=== PATIENT | male | born 1940 | race Caucasian/White ===

== ENCOUNTER 2017-01-06 14:08 | Observation (INO) | payer MEDICARE, OTHER ==
[2017-01-06] MEDS ORDERED: NORMAL SALINE 1,000 ML IV ONE ×2 (14:33→16:58)
[2017-01-06 14:51] LABS: Hematocrit 36.6 % (42.0-52.0); Hemoglobin 11.6 gm/dL (13.5-18.0); Mean Cell Volume 96.1 fl (78-100); Mean Corpuscular Hemoglobin 30.4 pg (27-31); Mean Corpuscular Hgb Conc 31.7 g/dl (32-36); Neutrophil # 7.2 K/mm3 (1.3-6.0); Neutrophil % 74.3 % (42-75.0); Platelet Count 308 K/mm3 (150-450); Red Blood Count 3.81 M/mm3 (4.7-6.0); Red Cell Distribution Width 12.7 % (11.5-14.0); White Blood Count 9.7 K/mm3 (4.0-10.5)
--- NOTE | 2017-01-06 14:59 | ERNOTE ---
GI Bleeding/Rectal Pain ER Date of Service: 01/06/17 Presenting Symptoms: dark/tarry stools, other - weakness and recalcitrant wound Time Seen by Provider: 01/06/17 14:20 Source: patient Exam Limitations: no limitations Allergies/Adverse Reactions: Allergies iodine Adverse Reaction (Verified 01/06/17 14:14) shellfish derived Adverse Reaction (Verified 01/06/17 14:14) Home Medications: HOME MEDICATIONS Aspirin [Children's Aspirin] 162 mg PO DAILY 12/16/16 [Last Taken 12/16/16] Docusate Sodium [Colace] 100 mg PO DAILY 12/16/16 [Last Taken 12/16/16] Furosemide [Lasix] 40 mg PO QID MDD 7 TABLETS DAILY 12/16/16 [Last Taken ] Gabapentin 800 mg PO TID 12/16/16 [Last Taken 12/16/16] Hydromorphone HCl [Dilaudid] 4 mg PO Q46H PRN 12/16/16 [Last Taken 12/16/16] Lisinopril 10 mg PO DAILY 12/16/16 [Last Taken 12/16/16] Narrative: Pt. comes in with c/o stage 3 pressure ulcer to his L hip that is not healing, hypertension, dark tarry diarrhea, and weakness for 2-3 weeks. Pt. states that he has had nausea, lack of apatite, fatigue, and intermittent fevers as well. Pt. is being followed by the wound care center and has been on two different abx over the past month and started wound vac tx a couple weeks ago. Pt. denies any dizziness, lightheadedness, headache, CP, palpitations, or SOB. Pt. denies any alleviating or aggravating factors. Review of Systems - Review of Systems Constitutional: Present: recent illness, fever, chills, weakness, fatigue, malaise, weight loss, decreased activity level EYE: Present: no symptoms reported ENT: Present: no symptoms reported Respiratory: Present: no symptoms reported. Absent: shortness of breath, cough , wheezing Cardiology: Present: no symptoms reported. Absent: chest pain, palpitations Gastrointestinal/Abdominal: Present: nausea, diarrhea, eating less. Absent: vomiting, constipation, abdominal pain Genitourinary: Present: no symptoms reported Musculoskeletal: Present: back pain - chronic, joint pain - L post hip Skin: Present: no symptoms reported Neurological: Present: no symptoms reported. Absent: headache, dizziness/light- headedness, numbness, tingling All Other Systems: All systems neg except as marked - Patient's Past Medical History Patient History - Medical: Chronic Pain, UTI'S Patient History - Cardiac/Respiratory: Aneurysm, COPD, Hypertension, Myocardial Infarction, TIA Patient History - Cancer: Prostate, Radiation Therapy Patient History - Surgical Procedures: Appendectomy, Colonoscopy Patient History - Other: None - Family History Mother Family History - Medical: Family History - Cardiac/Respiratory: Myocardial Infarction Family History - Cancer: No pertinent family hx Father Family History - Medical: Family History - Cardiac/Respiratory: No pertinent hx Family History - Cancer: No pertinent family hx - Social History Living Situations: home Abuse History: No History of abuse Psych History: No pertinent hx Alcohol Use: other Physical Exam - Physical Exam General Appearance: Present: wd/wn, alert, no apparent distress Eye Exam: Normal inspection: bilateral, PERRL: bilateral, EOMI: bilateral Ears, Nose, Throat: Present: normal ENT inspection Neck: Present: normal inspection, nontender. Absent: lymphadenopathy (R), lymphadenopathy (L) Respiratory: Present: no respiratory distress, no accessory muscle use, chest nontender, lungs clear, decreased breath sounds Cardiovascular/Chest: Present: no murmur, normal peripheral pulses, tachycardia Gastrointestinal/Abdominal: Present: normal bowel sounds, nontender, nondistended, soft, no organomegaly Back Exam: Present: normal inspection, normal range of motion, no CVA tenderness , no vertebral tenderness Extremity Exam: Present: other - stage 4 Pressure ulcer L post IS Neurological Exam: Present: alert, oriented, normal mood/affect, motor weakness - BLE normal for pt. but generalized weakness present is increased for pt. Skin Exam: Present: cool/dry, pallor, other - stage 4 pressure ulcer with bone in wound base serosanguinous non purulent drainage small amount Lymphatic Exam: Present: no adenopathy ED Progress - Date and Time Seen: Date and Time: 01/06/17 16:[address] Chavez and she accepts admission of pt. for treatment of dehydration and weakness - Results and Orders Patient's Lab Results:: I have reviewed the patient's lab results. - Vital Signs Patient's Vital Signs:: I have reviewed the patient's vital signs. Vital Signs: Vital Signs 01/06/17 01/06/17 13:13 14:10 Temperature 36.2 C L 36.2 C L Pulse Rate 94 Respiratory 12 Rate Blood Pressure 60/30 114/57 O2 Sat by Pulse 96 Oximetry - EKG EKG: NSR EKG read: Interp. by me EKG Comments: no acute - X-Ray X-Ray #1 X-Ray: hip Interpretation: Reviewed by me X-ray Comments: No acuteossious abnormalities or evidence of osteomylitis - Progress/Reassessment Chief Complaint: GI Bleed Departure Clinical Impression: Pressure ulcer of left buttock, stage 3, Wheelchair bound, Black stools, Weakness, Dehydration Frequent loose stools Qualifiers: Diarrhea type: unspecified type Qualified Code(s): R19.7 - Diarrhea, unspecified - Departure Disposition: [facility] Condition: Fair Referrals: Sudhakar Severino MD [Primary Care Provider] -
[2017-01-06 15:09] LABS: Albumin * 2.9 gm/dl (3.4-5.0); Anion Gap 13.2 mmol/L (6.8-13.8); Bilirubin, Total 0.3 mg/dL (0.0-1.1); CRP 6.7 mg/dL (0.0-0.9); Ca. Corrected For Albumin 9.9 mg/dL (8.4-10.2); Calcium * 9.3 mg/dL (7.9-10.9); Potassium 5.2 mmol/L (3.4-4.6); Total Protein 7.8 gm/dL (6.2-8.2)
--- OUTSIDE RECORDS SUMMARY | 2017-01-06 15:35 | XMS REPORT | Continuity of Care Document ---
:1940 Author Organization [facility] ([facility]) Address [address] [place] [address] Phone [phone] Care Team Providers Name Role Phone Unavailable Primary Care Provider Unavailable Source Comments This disclosure is being made pursuant to the Care Everywhere program, applicable federal and state laws, and may not contain all informaitonavailable regarding this patient.[facility] ([facility]) Active Allergies and Adverse Reactions Not on File Current Medications Not on file Active Problems Not on file Social History Tobacco Use Types Packs/Day Years Used Date Never Assessed Plan of Care Health Maintenance Due Date Last Done Comments Hepatitis B Vaccine (1 of 3 - Primary Series) 1940 Tdap Vaccine 1950 Lipid Disorder Screening 1957 Td Vaccine 1957 Colonoscopy 05/07/1989 Zoster Vaccine 1999 Pneumococcal Vaccine (1 of 2 - PCV13) 2004 Influenza Vaccine: Seasonal (#1) 06/06/2016 Results from Last 3 Months Not on file
--- OUTSIDE RECORDS SUMMARY | 2017-01-06 15:35 | XMS REPORT | Continuity of Care Document ---
:1940 Author Organization [facility] [place] [address] Care Team Providers Name Role Phone Sudhakar Severino Primary Care Provider [phone] Source Comments This disclosure is being made pursuant to the [employer] program and maynot contain all information available regarding this patient.[facility] Active Allergies and Adverse Reactions Allergen Noted Date Severity Reactions Comments Iodinated Diagnostic Agents 01/19/2015 Other (See Comments) Shellfish Allergy 01/19/2015 Medium Nausea And Vomiting Tamsulosin 01/19/2015 Other (See Comments) Terazosin 01/19/2015 Other (See Comments) Current Medications Be aware that medications may not be up to date as of this document. Alwaysverify current medications with the patient. Prescription Sig. Disp. Refills Start Date End Date Status ferrous sulfate (KP Take 1 tablet by Active FERROUS SULFATE) 325 (65 mouth 2 (two) FE) MG tablet times daily. furosemide (LASIX) 40 MG Take 40 mg by Active tablet mouth daily. gabapentin (NEURONTIN) 800 Take 800 mg by Active MG tablet mouth 4 (four) times daily. ipratropium-albuterol Inhale 3 mLs into Active (DUONEB) 0.5-2.5 (3) the lungs 4 (four) MG/3ML SOLN times daily as needed. lisinopril Take 5 mg by mouth Active (PRINIVIL,ZESTRIL) 10 MG daily. tablet aspirin 81 MG EC tablet Take 81 mg by Active mouth daily. HYDROmorphone (DILAUDID) 4 Take 4 mg by mouth Active MG tablet 3 (three) times daily. docusate sodium (COLACE) Take 100 mg by Active 100 MG capsule mouth 2 (two) times daily. 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/2010 Overview: Overview: GUY LEWIS MD Neurogenic bladder 09/17/2008 Overview: Overview: CESAR JOSE Hemorrhage of rectum and anus 05/01/2007 Overview: Overview: HIRAM PENNINGTON MD Personal history of malignant neoplasm of prostate 11/02/2005 Overview: Overview: HIRAM PENNINGTON MD Enlarged prostate with lower urinary tract symptoms (LUTS) 05/23/2005 Overview: Overview: HIRAM PENNINGTON MD Encounter for long-term (current) use of other medications 05/23/2005 Overview: Overview: HIRAM PENNINGTON MD Pre-operative cardiovascular examination 05/23/2005 Overview: Overview: HIRAM PENNINGTON MD Other specified pre-operative examination 05/23/2005 Overview: Overview: HIRAM PENNINGTON MD Resolved Problems Problem Noted Date Resolved Date Gross hematuria 04/21/2014 06/19/2016 Overview: Overview: YANN ALVARES MD Hematuria 09/14/2007 06/19/2016 Overview: Overview: ASTER LEVI/CESAR PENNINGTON Malignant neoplasm of prostate (HCC) 08/15/2005 06/19/2016 Overview: Overview: HIRAM PENNINGTON MD Elevated prostate specific antigen (PSA) 05/23/2005 06/19/2016 Overview: Overview: HIRAM PENNINGTON MD Most Recent Encounters Date Type Specialty Providers Description 10/20/2016 Data Import Immunizations Name Dates Previously Given Next Due Influenza Split 08/09/2014 Social History Tobacco Use Types Packs/Day Years Used Date Former Smoker Smokeless Tobacco: Never Used Alcohol Use Drinks/Week oz/Week Comments Yes Alcoholic Drinks/day: occassional glass of wine Last Filed Vital Signs Vital Sign Reading Time Taken Blood Pressure 110/62 06/15/2016 3:26 PM CDT Pulse 100 06/15/2016 3:26 PM CDT Temperature 36.4 C (97.5 F) 06/15/2016 3:26 PM CDT Respiratory Rate 24 06/15/2016 3:26 PM CDT Height 1.727 m (5' 8") 06/15/2016 3:26 PM CDT Weight 56.7 kg (125 lb) 06/15/2016 3:26 PM CDT Body Mass Index 19.01 06/15/2016 3:26 PM CDT Oxygen Saturation - - Plan of Care Date Type Specialty Providers Description 06/22/2017 Appointment Urology Yann Alvares MD [address] [place] [phone] (Fax) Health Maintenance Due Date Last Done Comments Tetanus/Pertussis (1 - Tdap) 1958 Well Adult Visit 1989 Zoster Vaccine 60+ 1999 Pneumococcal Low/Medium Risk 65+ (1 of 2 - PCV13) 2004 Influenza Immunization (#1) 2016 08/09/2014 Results from Last 3 Months Not on file
--- OUTSIDE RECORDS SUMMARY | 2017-01-06 17:06 | XMS REPORT | Continuity of Care Document ---
:1940 Author Organization [facility] ([facility]) Address [address] [place] [address] Phone [phone] Care Team Providers Name Role Phone Unavailable Primary Care Provider Unavailable Source Comments This disclosure is being made pursuant to the Care Everywhere program, applicable federal and state laws, and may not contain all informaitonavailable regarding this patient.[facility] ([facility]) Active Allergies and Adverse Reactions Not on [...]
--- OUTSIDE RECORDS SUMMARY | 2017-01-06 17:06 | XMS REPORT | Continuity of Care Document ---
:1940 Author Organization [facility] [place] [address] Care Team Providers Name Role Phone Sudhakar Severino Primary Care Provider [phone] Source Comments This disclosure is being made pursuant to the [employer] program and maynot contain all information available regarding this patient.[facility] Active Allergies and Adverse Reactions Allergen Noted [...] Description 06/22/2017 Appointment Urology Yann Alvares MD [address] [place] [phone] (Fax) Health Maintenance Due Date Last Done Comments Tetanus/Pertussis (1 - Tdap) 1958 Well Adult Visit 1989 Zoster Vaccine 60+ 1999 Pneumococcal Low/Medium Risk 65+ (1 of 2 - PCV13) 2004 Influenza Immunization (#1) 2016 08/09/2014 Results from Last 3 Months Not on file
[2017-01-06] MEDS: NORMAL SALINE 1,000 ML IV PRN (19:34)
--- NOTE | 2017-01-06 20:17 | HP ---
Chief Complaint - Chief Complaint Date of Service: 01/06/17 Time of Service: 19:20 Chief Complaint: Left ischium ulcer History of Present Illness: 76 Years old male adm to the hospital with reports of painful pressure ulcers pt stated 2 weeks ago he had debridement of Left ischium and went home with wound vac and oral antibiotics. Pt had completed treatment regimen but pain persist to site of debridement with serosang drainage. Pt stated he had loose stool a few days ago and noticed blood in stool likely from the irritation from surgical site. He typically have bowel movement 2-3 days and haven't had a bowel movement in a day. He feels a little constipated and refusing stool softeners and laxative. Laxative and softeners will give him too much loose stool that he cant handle. He had his 18F Rosa cath change 3 weeks ago but continue to notice leaking around rosa. He had inflated the balloon on Rosa but it continue to leave. pt denies fever, chills, palpitation, malodorous drainage from wound and wears wound vac at nights. PMH significant for TX, recurrent UTI, non healing left ischium ulcer, COPD, hypertension and AAA. Plan of care discussed with pt, he verbalized understanding and agrees. - Patient's Past Medical History Patient History - Medical: Chronic Pain, UTI'S Patient History - Cardiac/Respiratory: Aneurysm, COPD, Hypertension, Myocardial Infarction, TIA Patient History - Cancer: Prostate, Radiation Therapy Patient History - Surgical Procedures: Appendectomy, Colonoscopy Patient History - Other: None - Family History Mother Family History - Medical: Family History - Cardiac/Respiratory: Myocardial Infarction Family History - Cancer: No pertinent family hx Father Family History - Medical: Family History - Cardiac/Respiratory: No pertinent hx Family History - Cancer: No pertinent family hx - Social History Living Situations: spouse Abuse History: No History of abuse Psych History: No pertinent hx Smoking Status: Never smoker Have you smoked in the past 12 months: No Alcohol Use: other Review Of Systems (GEN) - Review of Systems Generalized/Overall Review: Present: No Symptoms Reported EENTM: Present: No Symptoms Reported Respiratory: Present: No Symptoms Reported Cardiac: Present: No Symptoms Reported Abdominal: Present: Constipation Genitourinary: Present: Other - Leaking around rosa cath Musculoskeletal: Present: Other - Left hip pain, lower paraplegia Neurological: Present: No Symptoms Reported Skin: Present: Other - Ulcer to ischium, with wound vac in place Endocrine: Present: No Symptoms Reported Allergies/Adverse Reactions: Allergies Allergy/AdvReac Type Severity Reaction Status Date / Time iodine AdvReac Verified 01/06/17 14:14 shellfish derived AdvReac Verified 01/06/17 14:14 Home Medications: HOME MEDICATIONS Aspirin [Children's Aspirin] 162 mg PO DAILY 12/16/16 [Last Taken 12/16/16] Docusate Sodium [Colace] 100 mg PO DAILY 12/16/16 [Last Taken 12/16/16] Furosemide [Lasix] 40 mg PO DAILY MDD 7 TABLETS DAILY 12/16/16 [Last Taken 12/16] Gabapentin 800 mg PO QID 12/16/16 [Last Taken 12/16/16] Hydromorphone HCl [Dilaudid] 4 mg PO Q46H PRN 12/16/16 [Last Taken 12/16/16] Lisinopril 5 mg PO DAILY 12/16/16 [Last Taken 12/16/16] Exam - Exam Vital Signs: Vital Signs - Last Taken Temp 36.8 C 01/06/17 17:26 Pulse 88 01/06/17 17:26 Resp 20 01/06/17 17:26 BP 116/58 01/06/17 17:26 Pulse Ox 100 01/06/17 17:26 Constitutional: Present: Alert, Oriented x3, Cooperative, No distress, Elderly, Thin and frail ENT Exam: Present: moist mucous membranes Eye Exam: bilateral eye: PERRL Neck: Present: full range of motion Breasts: Present: Exam deferred Respiratory: Present: chest non-tender, lungs clear, normal breath sounds, no respiratory distress Cardiovascular/Chest: Present: normal peripheral pulses, regular rate, rhythm, no chest tenderness, no edema Peripheral Pulses: dorsalis-pedis (R): 2+, dorsalis-pedis (L): 2+ Abdomen: Present: Normal bowel sounds, soft, nontender, nondistended, no rebound tenderness /Rectal: Present: Other - Rosa cath Extremity: Present: lower extremity edema, slow capillary refill, other - Paraplegia lower extremity Skin Exam: Present: warm/dry, other - Pressure ulcer with wound vac left ischium Lymphatic: Present: no adenopathy Neurologic: Present: oriented x 3 Appearance: Present: appropriate appearance Eye contact: Present: cooperative, good eye contact Thoughts: Present: normal thought pattern Diagnostic Studies: Laboratory Results WBC 9.7 K/mm3 (4.0-10.5) 01/06/17 14:43 RBC 3.81 M/mm3 (4.7-6.0) L 01/06/17 14:43 Hgb 11.6 gm/dL (13.5-18.0) L 01/06/17 14:43 Hct 36.6 % (42.0-52.0) L 01/06/17 14:43 MCV 96.1 fl (78-100) 01/06/17 14:43 MCH 30.4 pg (27-31) 01/06/17 14:43 MCHC 31.7 g/dl (32-36) L 01/06/17 14:43 RDW 12.7 % (11.5-14.0) 01/06/17 14:43 Plt Count 308 K/mm3 (150-450) 01/06/17 14:43 MPV 9.0 fl (6.0-9.5) 01/06/17 14:43 Immature Gran % (Auto) 0.60 % (0.001-0.429) H 01/06/17 14:43 Immature Gran # (Auto) 0.06 K/mm3 (0.000-0.0310) H 01/06/17 14:43 Neutrophils % 74.3 % (42-75.0) 01/06/17 14:43 Lymphocytes % 14.3 % (20-51) L 01/06/17 14:43 Monocytes % 5.6 % (0.0-9) 01/06/17 14:43 Eosinophils % 4.6 % (0.0-3.0) H 01/06/17 14:43 Basophils % 0.6 % (0.0-1.0) 01/06/17 14:43 Nucleated RBC % 0.0 k/mm3 (0-1) 01/06/17 14:43 Neutrophils # 7.2 K/mm3 (1.3-6.0) H 01/06/17 14:43 Lymphocytes # 1.4 k/mm3 (1.5-3.5) L 01/06/17 14:43 Monocytes # 0.6 k/mm3 (0.0-1.0) 01/06/17 14:43 Eosinophils # 0.5 k/mm3 (0.0-0.7) 01/06/17 14:43 Absolute Basophils 0.1 k/mm3 (0.0-0.1) 01/06/17 14:43 ESR 110 mm/hr (0-10) H 01/06/17 14:43 Sodium 136 mmol/L (132-142) 01/06/17 14:43 Plasma Sodium 136 mmol/L (130-142) 01/06/17 14:43 Potassium 5.2 mmol/L (3.4-4.6) H D 01/06/17 14:43 Chloride 98 mmol/L (97-106) 01/06/17 14:43 Carbon Dioxide 30.0 mmol/L (24-32.6) 01/06/17 14:43 Anion Gap 13.2 mmol/L (6.8-13.8) 01/06/17 14:43 BUN 41 mg/dL (6-23) H 01/06/17 14:43 Creatinine 2.56 mg/dL (0.4-1.4) H D 01/06/17 14:43 Est GFR (Non-Af Amer) 26 mL/min (60-130) L D 01/06/17 14:43 BUN/Creatinine Ratio 16.0 (9.0-21.6) 01/06/17 14:43 Random Glucose 116 mg/dL (70-110) H 01/06/17 14:43 Lactic Acid, Venous 1.8 mmol/L (0.4-2.0) 01/06/17 14:43 Calcium 9.3 mg/dL (7.9-10.9) 01/06/17 14:43 Calcium Adj for Albumin 9.9 mg/dL (8.4-10.2) 01/06/17 14:43 Total Bilirubin 0.3 mg/dL (0.0-1.1) 01/06/17 14:43 AST 18 U/L (0-48) 01/06/17 14:43 ALT 14 U/L (19-67) L 01/06/17 14:43 Alkaline Phosphatase 85 U/L (50-170) 01/06/17 14:43 C-Reactive Prot, Quant 6.7 mg/dL (0.0-0.9) H 01/06/17 14:43 Total Protein 7.8 gm/dL (6.2-8.2) 01/06/17 14:43 Albumin 2.9 gm/dl (3.4-5.0) L 01/06/17 14:43 X-ray Left Hip/pelvic: Diffused make osteopenia. No definiative bony destruction involving the proximal femur to suggest osteomyelitis Assessment/Plan - Narrative Narrative: Left ischium Pressure ulcer with wound vac s/p debridement two weeks ago and completed oral antbx MRI left hip pending concern for osteomyelitis Initiated Zosyn and vancomycin , pharmacy to dose. Monitor BMP in am Dehydration likely due to diuretic use On adm BUN/ cre 41/2.54 Hold Diuretic and monitor BMP in am Continue with IVF hydration and encourage oral intake. Hypertension-stable continue to monitor vital signs. Weakness :likely due to praplegia, dehydration and malnutrition Mervin QID Encourage oral intake and supplement with meals Sdv Pilot/Navigator/Dds Operator consulted PT/ Ot evaluation and treatment Malnourished- secondary to pressure ulcers and lost of appetite On adm Elderly frail male with BMI 17.7kg Pt stated very poor appetite Mervin QID and encourage oral intake Hyperkalemia- secondary to reports of loose stool Continue with IVF hydration Monitor BMP in am Code status : VTE ppx: SCD and heparin GI ppx: Protonix Anticipate discharge home 2-3 days Time 45 minutes - Assessment/Plan (1) Hypertension Problem: Chronic (2) Dehydration Problem: Acute (3) Weakness Problem: Acute (4) Pressure ulcer of ischium, stage 3 Problem: Chronic Qualifiers: Laterality: left Qualified Code(s): L89.323 - Pressure ulcer of left buttock, stage 3
[2017-01-06] MEDS ORDERED: VANCOMYCIN HCL 1 GM in DEXTROSE 5 % IN WATER 250 ML IV SCH ×2 (21:45)
[2017-01-06] MEDS: SACCHAROMYCES BOULARDII 250 MG CAPSULE PO SCH (22:03)
[2017-01-06] MEDS ORDERED: VANCOMYCIN HCL 1 GM in DEXTROSE 5 % IN WATER 250 ML IV ONE ×2 (23:00)
[2017-01-06] MEDS: HYDROmorphone HCL 1 MG/ML DISP.SYRIN IV PRN (23:07)
[2017-01-07] MEDS: PIPERACILLIN SODIUM/TAZOBACTAM 2.25 GM in DEXTROSE 5 % IN WATER 100 ML IV SCH ×6 (01:47→12:06)
[2017-01-07] MEDS: HYDROmorphone HCL 1 MG/ML DISP.SYRIN IV PRN ×2 (03:16→07:53)
[2017-01-07 06:21] LABS: Anion Gap 12.3 mmol/L (6.8-13.8); BUN/Creatinine Ratio 20.7 (9.0-21.6); Carbon Dioxide 25.2 mmol/L (24-32.6); Estimated Creat Clear 33.4; Potassium 4.5 mmol/L (3.4-4.6)
--- NOTE | 2017-01-07 06:47 | PN ---
Subjective - Date and Time Seen Date: 01/07/17 Time: 06:37 Subjective Narrative: Patient seen today in bed no acute distress, he was sleepy and easily aroused. No new complaints at this time. he was medicated overnight for discomfort to the left hip and tolerated well. Objective - Review of Systems Generalized/Overall Review: Reports: No Symptoms Reported EENTM: Reports: No Symptoms Reported Respiratory: Reports: No Symptoms Reported Cardiac: Reports: No Symptoms Reported Abdominal: Reports: No Symptoms Reported Genitourinary Symptoms: Reports: No Symptoms Reported Musculoskeletal Complaints: Reports: Joint Pain - left hip pain, Other - Paraplegia Neurological: Reports: Weakness Skin: Reports: Other - pressure ulcer left ischium Endocrine: Reports: No Symptoms Reported - Vitals Vitals: Last Vital Signs Temp 36.6 C 01/07/17 06:10 Pulse 78 01/07/17 06:10 Resp 16 01/07/17 06:10 BP 111/53 01/07/17 06:10 Pulse Ox 93 01/07/17 06:10 - Abnormal Lab Findings Abnormal Lab Findings: Abnormal Lab Results 01/07/17 Range/Units 05:57 BUN 37 H (6-23) mg/dL Creatinine 1.79 H D (0.4-1.4) mg/dL Est GFR (Non-Af Amer) 39 L D (60-130) mL/min - Exam Constitutional: Present: Alert, Oriented x3, Cooperative, Well developed, No distress, Middle aged ENT Exam: Present: moist mucous membranes Neck: Present: full range of motion Breasts: Present: Exam deferred Respiratory: Present: chest non-tender, lungs clear, normal breath sounds, no respiratory distress Cardiovascular/Chest: Present: normal peripheral pulses, regular rate, rhythm, no chest tenderness, no edema Abdomen: Present: Normal bowel sounds, soft, nontender, nondistended, no rebound tenderness /Rectal: Present: Other - Rosa Extremity: Present: non-tender, slow capillary refill, other - paraplegia lower extremity Skin Exam: Present: warm/dry, no cyanosis Neurologic: Present: oriented x 3 Appearance: Present: appropriate appearance Eye contact: Present: cooperative Cauti Physician Documentation - Urinary Catheter Management Urethral (Rosa) Urethral Indwelling: Yes Reason for Continuing Indwelling Catheter: Assist healing open wound Date of Insertion: 01/07/17 Time of Insertion: 04:56 Assessment/Plan Plan Narrative: Dehydration likely due to diuretic use - gradually improving On adm BUN/ cre 41/2.54---> 37/1.79 Hold Diuretic and monitor BMP in am Continue with IVF hydration and encourage oral intake. Left ischium Pressure ulcer with wound vac s/p debridement two weeks ago and completed oral antbx MRI left hip pending concern for osteomyelitis with an elevated SEd rate 110 CRP 6.7 Initiated Zosyn and vancomycin , pharmacy to dose. Change rosa cath due to leaking Monitor BMP in am Malnourished- secondary to pressure ulcers and lost of appetite On adm Elderly frail male with BMI 17.7kg Pt stated very poor appetite Mervin QID and encourage oral intake Hypertension-stable continue to monitor vital signs. Weakness :likely due to praplegia, dehydration and malnutrition Mervin QID Encourage oral intake and supplement with meals Housekeeping Room Attendant consulted PT/ Ot evaluation and treatment Hyperkalemia- secondary to reports of loose stool- Resolved Continue with IVF hydration Code status : DNR VTE ppx: SCD and heparin GI ppx: Protonix Anticipate discharge home 2-3 days Time 30 minutes - Problems/Diagnosis (1) Hypertension Problem: Chronic (2) Dehydration Problem: Acute (3) Weakness Problem: Acute (4) Pressure ulcer of ischium, stage 3 Problem: Chronic Qualifiers: Laterality: left Qualified Code(s): L89.323 - Pressure ulcer of left buttock, stage 3 (5) Acute hyperkalemia Problem: Resolved
[2017-01-07] MEDS: GABAPENTIN 400 MG CAPSULE PO SCH ×2 (08:51→14:02)
[2017-01-07] MEDS: SACCHAROMYCES BOULARDII 250 MG CAPSULE PO SCH (08:51)
[2017-01-07] MEDS ORDERED: DOCUSATE SODIUM 100 MG CAPSULE PO SCH (09:00)
[2017-01-07] MEDS ORDERED: ASPIRIN 81 MG TAB.CHEW PO SCH (09:00)
[2017-01-07] MEDS: NORMAL SALINE 1,000 ML IV PRN (12:10)
[2017-01-07 15:50] VITALS: BP 111/47
--- NOTE | 2017-01-07 16:04 | DS ---
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 DATE OF DISCHARGE: 01/07/2017. HOSPITAL COURSE: Dominguez Zuniga is a 76-year-old WM with a H/O paraplegia, weight loss, malnutrition who developed a nonhealing ulcer on his ischium for several months and and is seeing a wound clinic for the same. Apparently a wound VAC was applied for the same. He was found to have low blood pressures and an elevated BUN/CR 41/2.56. He was given IV fluids with improvement in his symptoms. Discuss the case with Dr. Burk[ orthopedics]-he felt that wound VAC would not be really helpful in such cases as patients would always have persistent osteomyelitis. Most often these patients would require multifactorial treatment including debridement and flap which would be done at the [facility] etc. Had a detailed discussion with the family who did not definitely want to go there. Also recommended frequent change of position, increased nutrition and a trial of mirtazapine for 2-3 months to improve overall condition. Antihypertensives were discontinued. Patient was discharged in a stable condition on 01/07/2017 to be followed with PCP in 1-3 weeks to discuss plan of care. A total of 50 minutes was spent [including [id number] encounter with the family discussing treatment options], in plan of care, discharging patient, reconciliation of medications, preparation and dictating discharge summary. Procedures Performed: none Results and Findings: Laboratory Tests 01/06/17 14:43 WBC 9.7 RBC 3.81 L Hgb 11.6 L Hct 36.6 L Plt Count 308 01/06/17 01/07/17 14:43 05:57 Plasma Sodium 136 136 Potassium 5.2 H D 4.5 Chloride 98 103 Carbon Dioxide 30.0 25.2 BUN 41 H 37 H Creatinine 2.56 H D 1.79 H D Est GFR (Non-Af Amer) 26 L D 39 L D Random Glucose 116 H 96 Calcium Adj for Albumin 9.9 Total Bilirubin 0.3 AST 18 ALT 14 L Alkaline Phosphatase 85 Total Protein 7.8 Albumin 2.9 L 01/06/17 01/06/17 01/07/17 14:43 14:43 05:57 ESR 110 H 80 H Lactic Acid, Venous 1.8 C-Reactive Prot, Quant 6.7 H AP PELVIS; LEFT HIP: 01/06/2017: 14:31: 1. Diffuse marked osteopenia. 2. No acute osseous processes involving the AP pelvis. 3. Left hemiprosthesis within the proximal left femur. The metallic femoral head is normally positioned within the acetabulum. The may be loosening involving the femoral stem. No definable bony destruction involving the proximal femur to suggest osteomyelitis. Discharge Disposition: Home self care Disposition: Other home health Condition: Undetermined Discharge Diet: General/regular food, High Fiber - increased protein Referrals: Sudhakar Severino MD [Primary Care Provider] - Problem Oriented Discharge Instructions to Patient/Family: Dehydration, Adult, [id number] Additional Patient Instructions (free text): Resume [facility]. Please fax orders to [phone]. Call report to [phone]. Vitamin D3 is an OTC medication. Any Multivitamin daily. Try mirtazipine for 4-6 weeks, can switch to another antidepressant if this does not work. Indonesian yogurt - 4-6 ounces once or twice a day. Get BP checked 3-4 times a week; may not need meds or a much lower dose. Appt with PCP in 3-4 weeks. Prescriptions (Any new or edited meds): Cholecalciferol (Vitamin D3) [Vitamin D3] 5,000 unit PO DAILY #100 tablet HYDROmorphone HCL [Dilaudid] 1 mg PO Q6H PRN #.1 tablet PRN Reason: Pain Mirtazapine 7.5 mg PO DAILY@1999 #30 tablet Sennosides/Docusate Sodium [Senna-Docusate Sodium Tablet] 1 each PO DAILY@1999 # .1 tablet Complete Home Medications List: Complete Home Medication List: Aspirin [Children's Aspirin] 162 mg PO DAILY 12/16/16 Gabapentin 800 mg PO QID 12/16/16 Cholecalciferol (Vitamin D3) [Vitamin D3] 5,000 unit PO DAILY #100 tablet HYDROmorphone HCL [Dilaudid] 1 mg PO Q6H PRN #.1 tablet 01/07/17 Mirtazapine 7.5 mg PO DAILY@1999 #30 tablet 01/07/17 Sennosides/Docusate Sodium [Senna-Docusate Sodium Tablet] 1 each PO DAILY@1999 # .1 tablet 01/07/17
[2017-01-07] MEDS ORDERED: VANCOMYCIN HCL 0.75 GM in DEXTROSE 5 % IN WATER 250 ML IV SCH ×2 (22:00)
== END 2017-01-07 18:40 | disposition home health service (06) ==
LOC: ER 14:08 → MS 16:59 → OBSVTOIN 16:59 → INTOOBSV 16:59
PROVIDERS: ADMIT Internal Medicine; ATTEND Internal Medicine
DX: E86.0 Dehydration (principal); L89.323 Pressure ulcer of left buttock, stage 3; E46 Unspecified protein-calorie malnutrition; Z68.1 Body mass index [BMI] 19.9 or less, adult; I10 Essential (primary) hypertension; E87.5 Hyperkalemia; R53.1 Weakness
CPT/HCPCS: 36415; 73502; 80048; 80053; 83605; 85025; 85652; 86140; 87040; 87081; 93005; 96360; 96361; 96365; 96366; 96375; 96376; 99284; G0378